=== PATIENT | female | born 1985 | race Caucasian/White ===

== ENCOUNTER 2020-04-24 09:39 | Outpatient (CLI) | payer OTHER ==
[2020-05-14] MEDS ORDERED: DOCUSATE SODIU100 MG PO (16:12)
[2020-05-14] MEDS ORDERED: HYDROCODON-ACE1 EAC4 PO (16:12)
[2020-05-14] MEDS ORDERED: IBUPROFEN600 MG PO (16:12)
== END 2020-04-24 11:43 | disposition home or self-care (01) ==
LOC: GENOP 09:39
DX: O99.891 Other specified diseases and conditions complicating pregnancy (principal); N89.8 Other specified noninflammatory disorders of vagina; M54.9 Dorsalgia, unspecified; Z3A.36 36 weeks gestation of pregnancy
CPT/HCPCS: 81001; G0463

== ENCOUNTER → 2020-05-13 | Outpatient (CLI) | payer OTHER ==
[~2020-05-13] MED LIST: DOCUSATE SODIU100 MG PO; FLINTSTONES1 EACH PO; HYDROCODON-ACE1 EAC4 PO; IBUPROFEN600 MG PO; OMNICEF 300 MG300 MG PO
[2020-05-13 14:44] LABS: HEMOGLOBIN 11.7 gm/dl (12.3-15.3); RED BLOOD COUNT 4.04 M/UL (4.00-5.10); WHITE BLOOD COUNT 11.1 K/UL (4.5-11.0)
== END ==
LOC: GENOP 13:33
PROVIDERS: Obstetrics & Gynecology
DX: Z53.8 Procedure and treatment not carried out for other reasons (principal)
CPT/HCPCS: 36415; 81001; 85025

== ENCOUNTER 2020-05-14 08:00 | Inpatient (IN) | payer OTHER ==
[~2020-05-14] VITALS: Ht 167.6 cm; Wt 104.3 kg
[2020-05-14] MEDS ORDERED: FLINTSTONES1 EACH PO (10:44)
[2020-05-14] MEDS ORDERED: IBUPROFEN600 MG PO (16:12)
[2020-05-14] MEDS ORDERED: HYDROCODON-ACE1 EAC4 PO (16:12)
[2020-05-14] MEDS ORDERED: DOCUSATE SODIU100 MG PO (16:12)
[2020-05-15 05:45] LABS: HEMOGLOBIN 10.8 gm/dl (12.3-15.3)
== END 2020-05-15 17:27 | disposition home or self-care (01) | DRG 788 ==
LOC: OB 10:07
PROVIDERS: ADMIT Obstetrics & Gynecology
PROC: 10D00Z1 Extraction of Products of Conception, Low, Open Approach (ICD-10-PCS; principal; 2020-05-14 10:30)
DX: O99.214 Obesity complicating childbirth (principal); Z3A.39 39 weeks gestation of pregnancy; Z37.0 Single live birth; Z28.09 Immunization not carried out because of other contraindication; O99.02 Anemia complicating childbirth; D64.9 Anemia, unspecified
CPT/HCPCS: 36415; 81001; 82800; 85014; 85018; 85025; 94760; C9113; J0690; J1885; J2274; J2405; J2590; J3010; J7120

== ENCOUNTER 2020-09-14 17:25 | Emergency (ER) | payer OTHER ==
[~2020-09-14 17:25] MED LIST changes: -OMNICEF 300 MG300 MG PO
[2020-09-14 19:07] LABS: HEMOGLOBIN 13.2 gm/dl (12.3-15.3); RED BLOOD COUNT 4.73 M/UL (4.00-5.10); WHITE BLOOD COUNT 11.6 K/UL (4.5-11.0)
[2020-09-14 19:29] LABS: BUN/CREATININE RATIO 24 (0-10)
[2020-09-14] MEDS ORDERED: HYDROCODON-ACE1 EAC4 PO (20:53)
[2020-09-14] MEDS ORDERED: OMNICEF 300 MG300 MG PO (20:53)
== END 2020-09-14 21:07 | disposition home or self-care (01) ==
LOC: ER1 17:25
PROVIDERS: Emergency Medicine
DX: S70.01XA Contusion of right hip, initial encounter (principal); W19.XXXA Unspecified fall, initial encounter
CPT/HCPCS: 80053; 81001; 84703; 85025; 87077; 87086; 87186; 99284; J2270; J2405; J7030; Q9967

== ENCOUNTER 2021-09-09 05:45 | Inpatient (IN) | payer OTHER ==
[~2021-09-09] VITALS: Ht 167.6 cm; Wt 117.5 kg
[~2021-09-09 05:45] MED LIST changes: +OMNICEF 300 MG300 MG PO
[2021-09-09] MEDS ORDERED: FEROSUL325 MG PO (06:35)
[2021-09-09 06:49] LABS: HEMOGLOBIN 10.7 gm/dl (12.3-15.3); RED BLOOD COUNT 3.92 M/UL (4.00-5.10); WHITE BLOOD COUNT 10.6 K/UL (4.5-11.0)
[2021-09-09] MEDS ORDERED: HYDROCODON-ACE1 EAC2 PO (08:36)
[2021-09-09] MEDS ORDERED: COLACE 100MG C100 MG PO (08:36)
[2021-09-09] MEDS ORDERED: IBUPROFEN800 MG PO (08:36)
[2021-09-10 04:40] LABS: HEMOGLOBIN 10.2 gm/dl (12.3-15.3)
== END 2021-09-10 13:34 | disposition home or self-care (01) | DRG 788 ==
LOC: OB 05:45
PROVIDERS: ADMIT Obstetrics & Gynecology
PROC: 10D00Z1 Extraction of Products of Conception, Low, Open Approach (ICD-10-PCS; principal; 2021-09-09 07:30)
DX: O99.824 Streptococcus B carrier state complicating childbirth (principal); O34.211 Maternal care for low transverse scar from previous cesarean delivery; O99.214 Obesity complicating childbirth; Z20.822 Contact with and (suspected) exposure to COVID-19; E66.9 Obesity, unspecified; O99.02 Anemia complicating childbirth; D64.9 Anemia, unspecified; Z37.0 Single live birth; Z3A.39 39 weeks gestation of pregnancy; Z28.310 Unvaccinated for COVID-19
CPT/HCPCS: 36415; 81001; 85014; 85018; 85025; C9113; J0690; J1170; J2370; J2405; J2590; J7120

== ENCOUNTER 2021-10-26 22:20 | Emergency (ER) | payer OTHER ==
[~2021-10-26 22:20] MED LIST changes: +COLACE 100MG C100 MG PO; +FEROSUL325 MG PO; +HYDROCODON-ACE1 EAC2 PO; +IBUPROFEN800 MG PO
== END 2021-10-26 22:26 | disposition left against medical advice (07) ==
LOC: ER1 22:20
DX: Z53.21 Procedure and treatment not carried out due to patient leaving prior to being seen by health care provider (principal)

== ENCOUNTER 2021-11-05 20:01 | Emergency (ER) | payer OTHER ==
[2021-11-05 21:32] LABS: HEMOGLOBIN 12.3 gm/dl (12.3-15.3); RED BLOOD COUNT 4.6 M/UL (4.00-5.10); WHITE BLOOD COUNT 18.8 K/UL (4.5-11.0)
[2021-11-05 21:58] LABS: BUN/CREATININE RATIO 25 (0-10)
== END 2021-11-06 00:40 | disposition home or self-care (01) ==
LOC: ER1 20:01
PROVIDERS: Family Medicine
DX: S06.0X9A Concussion with loss of consciousness of unspecified duration, initial encounter (principal); S22.089A Unspecified fracture of T11-T12 vertebra, initial encounter for closed fracture; S50.812A Abrasion of left forearm, initial encounter; D72.829 Elevated white blood cell count, unspecified; V80.010A Animal-rider injured by fall from or being thrown from horse in noncollision accident, initial encounter
CPT/HCPCS: 70450; 71045; 72125; 72128; 72131; 72193; 80053; 82550; 82553; 83605; 84439; 84443; 84484; 84703; 85025; 93005; 96360; 99284; Q9967